=== PATIENT | male | born 1965 | race Caucasian/White ===

== ENCOUNTER 2021-04-15 01:16 | Emergency (ER) | payer BC ==
[2021-04-15 01:41] VITALS: BP 148/96; PULSE 54; TEMP 98.7; BMI 25.8
[2021-04-15] MEDS ORDERED: KETOROLAC TROMETHAMINE 30 MG/1 ML VIAL IVPUSH ONE (02:51)
[2021-04-15] MEDS ORDERED: SODIUM CHLORIDE 1,000 ML IV STA (02:51)
[2021-04-15] MEDS ORDERED: KETOROLAC TROMETHAMINE 30 MG/1 ML VIAL ONE (02:54)
[2021-04-15] MEDS ORDERED: morphine CARPU-JECT 2 MG/1 ML DISP.SYRIN IVPUSH ONE (04:19)
[2021-04-15] MEDS ORDERED: morphine SULFATE 4 MG/ML VIAL ONE (04:20)
[2021-04-15] MEDS ORDERED: TAMSULOSIN HCL 0.4 MG CAP PO ONE (06:37)
[2021-04-15] MEDS ORDERED: TAMSULOSIN HCL 0.4 MG CAP ONE (06:41)
== END 2021-04-15 07:02 | disposition home or self-care (01) ==
LOC: FER 01:16
PROC: 3E033GC Introduction of Other Therapeutic Substance into Peripheral Vein, Percutaneous Approach (ICD-10-PCS; principal; 2021-04-15)
DX: N23 Unspecified renal colic (principal)
CPT/HCPCS: 74176-TC; 99285-25

== ENCOUNTER 2021-05-07 04:39 | Day surgery (SDC) | payer BC ==
[2021-05-04 17:04] VITALS: BMI 25.1
[2021-05-07] MEDS ORDERED: PROPOFOL 20 ML ONE ×2 (11:25→11:26)
[2021-05-07] MEDS ORDERED: SUCCINYLCHOLINE CHLORIDE 200 MG/10 ML SYRINGE ONE (11:26)
[2021-05-07] MEDS ORDERED: MIDAZOLAM HCL 2 MG/2 ML SINGLE DOSE VIAL ONE (11:26)
[2021-05-07] MEDS ORDERED: IOHEXOL 300 MG/ML INFUS..BTL IV ONE ×2 (11:30)
[2021-05-07] MEDS ORDERED: ceFAZolin 2 GRAM PREMIX BAG IVPB ONE (11:42)
[2021-05-07 13:06] VITALS: TEMP 97.5
[2021-05-07] MEDS ORDERED: ONDANSETRON 4 MG/2 ML VIAL IVPUSH PRN (13:13)
[2021-05-07] MEDS ORDERED: oxyCODONE HCL 5 MG TABLET PO PRN (13:13)
[2021-05-07] MEDS ORDERED: LACTATED RINGERS SOLUTION 1,000 ML IV SCH (13:15)
[2021-05-07] MEDS: oxyCODONE HCL 5 MG TABLET PO PRN ×2 (15:10→15:55)
[2021-05-07] MEDS ORDERED: oxyCODONE HCL 5 MG TABLET ONE ×2 (15:10→15:48)
[2021-05-07 17:54] VITALS: BP 133/84; PULSE 64
== END 2021-05-07 17:05 | disposition home or self-care (01) ==
LOC: JASU-SURG 04:39
PROVIDERS: ATTEND Urology
PROC: 0TC48ZZ Extirpation of Matter from Left Kidney Pelvis, Via Natural or Artificial Opening Endoscopic (ICD-10-PCS; principal; 2021-05-07 12:00)
PROC: 0T778DZ Dilation of Left Ureter with Intraluminal Device, Via Natural or Artificial Opening Endoscopic (ICD-10-PCS; 2021-05-07 12:00)
DX: N13.2 Hydronephrosis with renal and ureteral calculous obstruction (principal)
CPT/HCPCS: 94760

== ENCOUNTER 2021-07-13 04:14 | Day surgery (SDC) | payer BC ==
[2021-07-09 12:29] VITALS: BMI 25.8
[2021-07-13] MEDS ORDERED: GLYCOPYRROLATE 0.2 MG/1 ML VIAL ONE (08:30)
[2021-07-13] MEDS ORDERED: MIDAZOLAM HCL 2 MG/2 ML SINGLE DOSE VIAL ONE (08:30)
[2021-07-13] MEDS ORDERED: ONDANSETRON 4 MG/2 ML VIAL IVPUSH PRN (08:40)
[2021-07-13] MEDS ORDERED: ACETAMINOPHEN 325 MG TABLET (FP) PO PRN (08:40)
[2021-07-13] MEDS ORDERED: oxyCODONE HCL 5 MG TABLET PO PRN (08:40)
[2021-07-13] MEDS ORDERED: LACTATED RINGERS SOLUTION 1,000 ML IV SCH (08:45)
[2021-07-13] MEDS ORDERED: PROPOFOL 20 ML ONE ×2 (09:17)
[2021-07-13 16:52] VITALS: BP 122/78; PULSE 78; TEMP 97.8
== END 2021-07-13 11:00 | disposition home or self-care (01) ==
LOC: JASU-SURG 04:14
PROVIDERS: ATTEND Urology
PROC: 0TF7XZZ Fragmentation in Left Ureter, External Approach (ICD-10-PCS; principal; 2021-07-13 08:45)
DX: N20.1 Calculus of ureter (principal)

== ENCOUNTER 2021-11-02 04:10 | Day surgery (SDC) | payer BC ==
[2021-11-01 10:15] VITALS: BMI 25.5
[2021-11-02] MEDS ORDERED: MIDAZOLAM HCL 2 MG/2 ML SINGLE DOSE VIAL ONE ×2 (08:00)
[2021-11-02 08:06] LABS: PH,URINE 5.5 (5.0-8.0); URINE APPEARANCE CLEAR; URINE BILIRUBIN NEGATIVE (NEGATIVE); URINE COLOR YELLOW; URINE GLUCOSE (UA) NEGATIVE (NEGATIVE); URINE KETONE NEGATIVE (NEGATIVE); URINE LEUK ESTERASE NEGATIVE (NEGATIVE); URINE NITRITE NEGATIVE (NEGATIVE); URINE PROTEIN NEGATIVE (NEGATIVE); URINE UROBILINOGEN 0.2 mg/dL (0.2-1.0)
[2021-11-02 10:36] VITALS: BP 116/80; PULSE 63; TEMP 98.8
== END 2021-11-02 10:15 | disposition home or self-care (01) ==
LOC: JASU-SURG 04:10
PROVIDERS: ATTEND Urology
PROC: 0TF4XZZ Fragmentation in Left Kidney Pelvis, External Approach (ICD-10-PCS; principal; 2021-11-02 08:00)
DX: N20.0 Calculus of kidney (principal)
CPT/HCPCS: 81003

== ENCOUNTER 2024-05-13 11:03 | Emergency (ER) | payer BC ==
[2024-05-13 11:22] VITALS: BP 137/91; PULSE 70; RESP 20; TEMP 97.8; BMI 24.4
[2024-05-13] MEDS ORDERED: predniSONE 20 MG TABLET (UD) ONE (13:23)
[2024-05-13] MEDS ORDERED: METHOCARBAMOL 500 MG TABLET ONE (13:23)
[2024-05-13] MEDS: METHOCARBAMOL 750 MG TAB PO ONE (13:26)
[2024-05-13] MEDS: predniSONE 20 MG TABLET (UD) PO ONE (13:26)
== END 2024-05-13 14:38 | disposition home or self-care (01) ==
LOC: JERFT 11:03
DX: M54.2 Cervicalgia (principal); M50.20 Other cervical disc displacement, unspecified cervical region
CPT/HCPCS: 72125-TC; 99284-25